=== PATIENT | female | born 1945 | race Caucasian/White ===

== ENCOUNTER → 2018-06-15 | Outpatient (CLI) | payer MEDICARE ==
--- NOTE | 2018-06-15 14:44 | XR ---
EXAMINATION TYPE: XR bone survey complete DATE OF EXAM: 06/15/2018 COMPARISON: NONE HISTORY: Multiple myeloma Bony calvarium : 2 views of the bony calvarium demonstrate. Hyperostosis of the calvarium. No lesion s identified. Spine: Two views of the cervical, thoracic and lumbar spines are submitted. Diffuse osteopenia noted . Hypertrophic and degenerative changes noted with multilevel facet arthropathy in the cervical spine . Multilevel degenerative disc disease within the thoracic spine. Grade 1 anterolisthesis L4 and L5 w ith facet arthropathy involving the lower lumbar spine. Multilevel degenerative changes are seen. No definite destructive lesions. PELVIS: Single view of the pelvis demonstrates. Calcifications the pelvis are seen. 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 UPPER EXTREMITIES: Two views of the upper extremities. Tiny lucencies seen in the proximal diaphysis of both humeri but is felt to be unrelated to bone lesion. LOWER EXTREMITIES: 2 views of the lower extremities. Arthropathy of the hip joint and knee joints no eleuterio. No definite suspicious lesions. There is a hiatal hernia. IMPRESSION: No definite suspicious lesions identified.
== END | disposition home or self-care (01) ==
LOC: RADXRMAIN 12:41
PROVIDERS: ATTEND Internal Medicine Hematology & Oncology
DX: R52 Pain, unspecified (principal)
CPT/HCPCS: 77075